=== PATIENT | female | born 1965 ===

== ENCOUNTER 2025-06-10 07:00 | Day surgery (SDC) | payer OTHER ==
[2025-06-04 08:47] VITALS: BP 136/83
[2025-06-04 09:24] LABS: BASO % 0.5 % (0.1-1.2); EOS # 0.06 (0.04-0.54); EOS % 0.9 % (0.7-7.0); LYMPH # 2.36 (1.18-3.74); LYMPH % 35.5 % (19.3-53.1); MEAN PLATELET VOLUME 9.60 fl (9.4-12.4); MONO # 0.51 (0.24-0.82); MONO % 7.7 % (4.7-12.5); NEUT # 3.67 (1.56-6.13); NEUT % 55.1 % (34.0-71.1); RED CELL DISTRIBUTION WIDTH 14.5 % (11.6-14.4)
[2025-06-04 09:26] LABS: URINE APPEARANCE Clear; URINE BILIRRUBIN Negative (NEGATIVE); URINE BLOOD Trace; URINE COLOR Yellow; URINE GLUCOSE Negative (NEGATIVE); URINE KETONE Negative (NEGATIVE); URINE LEUKOCYTE Negative; URINE NITRATE Negative; URINE PROTEIN Negative (NEGATIVE); URINE UROBILINOGEN 0.2 E.U./dl
[2025-06-04 09:28] LABS: URINE BACTERIA 85.1 uL (0.0-1933); URINE EPITHELIAL CELLS 5.3 uL (0.0-38.8); URINE RBC 17.7 uL (0.0-20.8); URINE WBC 1.9 uL (0.0-23.2)
[2025-06-04 09:40] LABS: URINE CAST 0.14 uL (0.0-1.40)
[2025-06-04 09:44] LABS: INR 0.95
[2025-06-04 10:41] LABS: ALT/SGPT 12.0 U/L (12-78); AST/SGOT 18.0 U/L (15-37); BILIRUBIN TOTAL 1.3 mg/dL (0.3-1.2); BUN CREA RATIO 18.0 (7.0-25.0); CREATININE SERUM 0.73 mg/dL (0.55-1.02); GFR 81.05; GLOBULINA 3.4 G/DL (2.4-3.5); GLUCOSE FASTING 108.0 mg/dL (65-100); OSMOLALITY SERUM 284.0 MOSM/KG (275-295)
[~2025-06-10] VITALS: Ht 152.4 cm; Wt 97.1 kg
[~2025-06-10 07:00] MED LIST: DULOXETINE HCL40 MG; GABAPENTIN 100MG; GABAPENTIN 800MG; LIPITOR; PANTOPRAZOLE; SYNTHROID112 MCG; [UNRECOGNIZED DRUG - OTHER]
[2025-06-10] MEDS ORDERED: CEFAZOLIN SODIUM 1,000 MG VIAL ONE (08:17)
[2025-06-10] MEDS ORDERED: LIDOCAINE HCL 1% 20 ML VIAL IJ ONE ×2 (09:06→09:45)
[2025-06-10] MEDS ORDERED: BUPIVACAINE HCL/Mpf 0.5% 10ML VIAL ONE (09:06)
[2025-06-10] MEDS ORDERED: ISOPROPYL ALCOHOL 30 ML OUNCE TOP ONE (09:45)
[2025-06-10] MEDS ORDERED: BUPIVACAINE HCL 30 ML VIAL IJ ONE (09:45)
[2025-06-10] MEDS ORDERED: MORPHINE SULFATE 2 MG/ML CARTRIDGE IV ONE (10:35)
== END 2025-06-10 12:10 | disposition home or self-care (01) ==
LOC: CIR.AMB 07:00
PROVIDERS: ATTEND Surgery Surgery of the Hand
DX: M65.842 Other synovitis and tenosynovitis, left hand (principal); Z91.040 Latex allergy status; Z91.013 Allergy to seafood

== ENCOUNTER 2025-07-15 08:00 | Day surgery (SDC) | payer OTHER ==
[2025-07-09 07:46] VITALS: BP 118/77
[2025-07-09 07:48] LABS: URINE APPEARANCE Clear; URINE BILIRRUBIN Negative (NEGATIVE); URINE BLOOD Small; URINE COLOR Yellow; URINE GLUCOSE Negative (NEGATIVE); URINE KETONE Negative (NEGATIVE); URINE LEUKOCYTE Negative; URINE NITRATE Negative; URINE PROTEIN Negative (NEGATIVE); URINE UROBILINOGEN 0.2 E.U./dl
[2025-07-09 07:50] LABS: URINE BACTERIA 457.1 uL (0.0-1933); URINE EPITHELIAL CELLS 23.0 uL (0.0-38.8); URINE RBC 13.9 uL (0.0-20.8); URINE WBC 6.1 uL (0.0-23.2)
[2025-07-09 07:55] LABS: BASO % 0.3 % (0.1-1.2); EOS # 0.09 (0.04-0.54); EOS % 1.4 % (0.7-7.0); LYMPH # 2.21 (1.18-3.74); LYMPH % 33.7 % (19.3-53.1); MEAN PLATELET VOLUME 9.70 fl (9.4-12.4); MONO # 0.56 (0.24-0.82); MONO % 8.5 % (4.7-12.5); NEUT # 3.66 (1.56-6.13); NEUT % 55.9 % (34.0-71.1); RED CELL DISTRIBUTION WIDTH 14.9 % (11.6-14.4); URINE CAST 0.43 uL (0.0-1.40)
[2025-07-09 08:13] LABS: INR 0.95
[2025-07-09 08:34] LABS: BUN CREA RATIO 15.0 (7.0-25.0); CREATININE SERUM 0.81 mg/dL (0.55-1.02); GFR 71.88; GLUCOSE FASTING 124.0 mg/dL (65-100); OSMOLALITY SERUM 288.0 MOSM/KG (275-295)
[~2025-07-15] VITALS: Ht 152.4 cm; Wt 99.3 kg
[2025-07-15] MEDS ORDERED: CEFAZOLIN SODIUM 1,000 MG VIAL ONE ×2 (09:23→09:28)
[2025-07-15] MEDS ORDERED: LIDOCAINE HCL 1% 20 ML VIAL IJ ONE (09:24)
[2025-07-15] MEDS ORDERED: ENALAPRILAT DIHYDRATE 1.25 MG/ML VIAL IV ONE (09:41)
== END 2025-07-15 12:45 | disposition home or self-care (01) ==
LOC: CIR.AMB 08:00
PROVIDERS: ATTEND Surgery Surgery of the Hand
DX: M65.841 Other synovitis and tenosynovitis, right hand (principal); Z91.013 Allergy to seafood; Z91.040 Latex allergy status